=== PATIENT | male | born 1970 | race Hispanic/Latino ===

== ENCOUNTER 2025-10-24 10:13 | Outpatient (CLI) | payer OTHER | END 2025-10-24 10:14 | disposition home or self-care (01) | LOC: CSHWCC 10:13 | PROVIDERS: ATTEND Nurse Practitioner Family | DX: E11.621 Type 2 diabetes mellitus with foot ulcer (principal); L97.312 Non-pressure chronic ulcer of right ankle with fat layer exposed; E11.65 Type 2 diabetes mellitus with hyperglycemia | CPT/HCPCS: 11042 ==